=== PATIENT | female | born 1985 | race American Indian/Alaskan Native ===

== ENCOUNTER 2018-12-11 15:26 | Emergency (ER) | payer SELFPAY ==
--- NOTE | 2018-12-11 16:58 | Emergency Department Report ---
Chief Complaint: Headache Stated Complaint: BODY PAIN/WEAKNESS Time Seen by Provider: 12/11/18 16:56 - HPI History of Present Illness: headache no n/v no photophobia no trauma lmp 11/22 pmh none pcp none psh csec 4 rx none no hx migraines pos b max tenderness dramatic in triage mse completed no life threat MSE screening note: Focused history and physical exam performed. Due to findings the following was ordered: ED Disposition for MSE Condition: Stable Referrals: REMY EMERY MD [Primary Care Provider] - 3-5 Days
[2018-12-11 18:09] LABS: Bilirubin,Urine NEG (Negative); Blood,Urine NEG (Negative); Color,Urine Yellow (Yellow); Mucus,Urine 2+ /HPF; Protein,Urine <15 mg/dL mg/dL (Negative); Urobilinogen,Urine < 2.0 mg/dL (<2.0)
[2018-12-11 18:10] LABS: HCG Qualitative,Urine Negative (Negative)
[2018-12-11] MEDS ORDERED: BENADRYL PO ONE (19:49)
[2018-12-11] MEDS ORDERED: DECADRON IM ONE (19:49)
[2018-12-11] MEDS ORDERED: REGLAN PO ONE (19:49)
[2018-12-11] MEDS ORDERED: TYLENOL PO ONE (19:49)
--- NOTE | 2018-12-11 20:03 | Emergency Department Report ---
ED Headache HPI - General Chief Complaint: Headache Stated Complaint: BODY PAIN/WEAKNESS Time Seen by Provider: 12/11/18 16:56 - History of Present Illness Initial Comments: There is a 33-year-old female who presents for headache occipital radiating to frontal 3 days pain is 5/10 and aching sharp is his usual headache location usual intensity and usual duration as other migraine, patient denies fevers or chills there is no nausea vomiting patient has secondary complaint of right lesion significant lesion in 2 years seen by ophthalmology believed to be herpetic however she did not follow will prescribe acyclovir follow up with ophthalmology for lesion there is no decreased vision no blurred vision no fever no chills patient is 20/20 to baseline per patient, Timing/Duration: other (3 days ) Quality: moderate Recent Head Trauma: no recent headache/trauma Modifying Factors: improves with: movement, other ( activity ) Allergies/Adverse Reactions: Allergies Penicillins Allergy (Verified 09/10/14 01:01) Hives Home Medications: Ambulatory Orders Ibuprofen [Motrin] 600 mg PO Q8H PRN #14 tablet 09/10/14 methOCARBAMOL [Robaxin] 500 mg PO BID #10 tab 09/10/14 Acetaminophen [Tylenol Extra Strength] 1,000 mg PO QID PRN #30 tablet 12/11/18 Acyclovir [Zovirax] 400 mg PO TID #30 tablet 12/11/18 Metoclopramide [Reglan] 10 mg PO Q6H PRN #30 tablet 12/11/18 Polymyxin B Sulf/Trimethoprim [Polytrim Eye Drops] 2 drop OP Q4H 10 Days #10 ml 12/11/18 diphenhydrAMINE [Benadryl CAP] 25 mg PO Q6HR PRN #30 capsule 12/11/18 ED Review of Systems ROS: Stated complaint: BODY PAIN/WEAKNESS Other details as noted in HPI Constitutional: denies: chills, fever Eyes: other (right eye lesion ). denies: eye pain, eye discharge, vision change ENT: ear pain Respiratory: denies: cough, shortness of breath, wheezing Cardiovascular: denies: chest pain, palpitations Endocrine: no symptoms reported Gastrointestinal: denies: abdominal pain, nausea, diarrhea Genitourinary: denies: urgency, dysuria, discharge Musculoskeletal: denies: back pain, joint swelling, arthralgia Skin: denies: rash, lesions Neurological: headache. denies: weakness, numbness, paresthesias, confusion, abnormal gait, vertigo Psychiatric: denies: anxiety, depression Hematological/Lymphatic: denies: easy bleeding, easy bruising ED Past Medical Hx - Past Medical History Previous Medical History?: No - Surgical History Past Surgical History?: Yes Additional Surgical History: CS x4 - Social History Smoking Status: Never Smoker Substance Use Type: None - Medications Home Medications: Home Medications Medication Instructions Recorded Confirmed Last Taken Type Ibuprofen [Motrin] 600 mg PO Q8H PRN #14 tablet 09/10/14 Unknown Rx methOCARBAMOL [Robaxin] 500 mg PO BID #10 tab 09/10/14 Unknown Rx Acetaminophen [Tylenol Extra 1,000 mg PO QID PRN #30 tablet 12/11/18 Unknown Rx Strength] Acyclovir [Zovirax] 400 mg PO TID #30 tablet 12/11/18 Unknown Rx Metoclopramide [Reglan] 10 mg PO Q6H PRN #30 tablet 12/11/18 Unknown Rx Polymyxin B Sulf/Trimethoprim 2 drop OP Q4H 10 Days #10 ml 12/11/18 Unknown Rx [Polytrim Eye Drops] diphenhydrAMINE [Benadryl CAP] 25 mg PO Q6HR PRN #30 capsule 12/11/18 Unknown Rx ED Physical Exam - General Limitations: No Limitations General appearance: alert, in no apparent distress - Head Head exam: Present: atraumatic, normocephalic, normal inspection - Eye Eye exam: Present: PERRL, EOMI, conjunctival injection, other (lesion 8 o clock less than 1 cm erythema no drainage no pain ). Absent: periorbital swelling, periorbital tenderness Pupils: Present: normal accommodation - ENT ENT exam: Present: normal orophraynx, mucous membranes moist, normal external ear exam - Expanded ENT Exam Expanded Ear exam: Present: normal external inspection TM/Canal exam: Erythema: Left TM Mouth exam: Absent: trismus Teeth exam: Present: normal inspection Throat exam: Positive: normal inspection. Negative: tonsillar erythema, tonsillomegaly, tonsillar exudate, R peritonsillar mass, L peritonsillar mass - Neck Neck exam: Present: normal inspection, full ROM. Absent: tenderness, meningismus, lymphadenopathy, thyromegaly - Respiratory Respiratory exam: Present: normal lung sounds bilaterally. Absent: respiratory distress, wheezes, stridor, chest wall tenderness - Cardiovascular Cardiovascular Exam: Present: regular rate, normal rhythm, normal heart sounds. Absent: systolic murmur, diastolic murmur, rubs, gallop - GI/Abdominal GI/Abdominal exam: Present: soft, normal bowel sounds. Absent: tenderness, bruit, hernia - Rectal Rectal exam: Present: deferred - Extremities Exam Extremities exam: Present: normal inspection, full ROM, normal capillary refill. Absent: tenderness, joint swelling - Back Exam Back exam: Present: normal inspection, full ROM. Absent: tenderness, rash noted - Neurological Exam Neurological exam: Present: alert, oriented X3, CN II-XII intact, normal gait, motor sensory deficit, reflexes normal - Psychiatric Psychiatric exam: Present: normal affect, normal mood - Skin Skin exam: Present: warm, dry, intact, normal color. Absent: rash ED Course Vital Signs 12/11/18 16:56 Temperature 97.5 F L Pulse Rate 78 Respiratory 16 Rate Blood Pressure 119/76 O2 Sat by Pulse 100 Oximetry ED Medical Decision Making - Radiology Data Radiology results: report reviewed, image reviewed cc: MANUEL [facility] PROCEDURE: CT HEAD/BRAIN WO CON HISTORY: HEADACHE FINDINGS: Unenhanced CT of the brain was performed and demonstrates no acute intracranial hemorrhage, extra-axial fluid collection, midline shift or mass effect. The ventricles and basal cisterns are not effaced. The mastoid air cells and middle ears appear clear. There is no evidence of acute sinusitis. IMPRESSION: No acute intracranial hemorrhage This document is electronically signed by Larry Moya MD., December 11 2018 08:06:37 PM ET Transcribed By: DELORES Dictated By: LARRY MOYA MD Electronically Authenticated By: LARRY MOYA MD Signed Date/Time: 12/11/182007 - Medical Decision Making CT head normal no bleed no mass no abnormality , Headache improved plan Benadryl Tylenol Reglan when necessary headache lesion will treat with Polytrim for conjunctivitis acyclovir for lesion patient will follow up with ophthalmology in 2 days there is no visual changes no decreased vision visual acuity is 20/20 there is no pain no drainage from lesion patient will follow with PCP [facility] patient verbalized agreement and understanding with same patient will DC home in stable condition at this time Critical care attestation.: If time is entered above; I have spent that time in minutes in the direct care of this critically ill patient, excluding procedure time. ED Disposition Clinical Impression: Headache Qualifiers: Headache type: unspecified Headache chronicity pattern: acute headache Intractability: not intractable Qualified Code(s): R51 - Headache Conjunctivitis Qualifiers: Conjunctivitis type: acute Acute conjunctivitis type: unspecified Laterality: right Qualified Code(s): H10.31 - Unspecified acute conjunctivitis, right eye Disposition: DC-01 TO HOME OR SELFCARE Is pt being admited?: No Does the pt Need Aspirin: No Condition: Stable Instructions: Acute Headache (ED), Conjunctivitis (ED), Cysteamine (Into the eye) Prescriptions: diphenhydrAMINE [Benadryl CAP] 25 mg PO Q6HR PRN #30 capsule PRN Reason: Headache Polymyxin B Sulf/Trimethoprim [Polytrim Eye Drops] 2 drop OP Q4H 10 Days #10 ml Metoclopramide [Reglan] 10 mg PO Q6H PRN #30 tablet PRN Reason: Headache Acetaminophen [Tylenol Extra Strength] 1,000 mg PO QID PRN #30 tablet PRN Reason: pain Acyclovir [Zovirax] 400 mg PO TID #30 tablet Referrals: REMY EMERY MD [Primary Care Provider] - 3-5 Days NEHAL IRELAND MD [Staff Physician] - 3-5 Days [facility] [Outside] - 3-5 Days Forms: Work/School Release Form(ED) Time of Disposition: 20:22
--- NOTE | 2018-12-11 20:08 | Cat Scan Report ---
PROCEDURE: CT HEAD/BRAIN WO CON HISTORY: HEADACHE FINDINGS: Unenhanced CT of the brain was performed and demonstrates no acute intracranial hemorrhage, extra-axial fluid collection, midline shift or mass effect. The ventricles and basal cisterns are no t effaced. The mastoid air cells and middle ears appear clear. There is no evidence of acute sinusitis. IMPRESSION: No acute intracranial hemorrhage This document is electronically signed by Larry oMya MD., December 11 2018 08:06:37 PM ET
[2018-12-11 20:50] VITALS: BP 122/74
== END 2018-12-11 20:50 | disposition home or self-care (01) ==
LOC: ED 15:26
DX: H10.31 Unspecified acute conjunctivitis, right eye (principal); R51 Headache
CPT/HCPCS: 70450; 81001; 81025; 96372; 99284; J1100

== ENCOUNTER 2019-01-10 20:40 | Emergency (ER) | payer SELFPAY ==
[2019-01-10 20:57] VITALS: BP 123/75
--- NOTE | 2019-01-10 22:01 | Emergency Department Report ---
Eye Injury/Foreign Body - HPI Duration: 3 Days Eye Location: Right Severity: Moderate Eye Symptoms: Eye Pain: No, Blurred Vision: No, Eye Redness: No, Grinding/Hammering Metal: No, Contact Lens Use: No, Photophobia: No Other History: 33 y/o female c/o right top lid lesion with pain. Denies any fever or discharge no blurry vision. ED Review of Systems ROS: Stated complaint: RIGHT EYE PAIN Other details as noted in HPI Comment: All other systems reviewed and negative ED Past Medical Hx - Past Medical History Previous Medical History?: No - Surgical History Past Surgical History?: Yes Additional Surgical History: CS x4 - Social History Smoking Status: Never Smoker Substance Use Type: None - Medications Home Medications: Home Medications Medication Instructions Recorded Confirmed Last Taken Type Ibuprofen [Motrin] 600 mg PO Q8H PRN #14 tablet 09/10/14 Unknown Rx methOCARBAMOL [Robaxin] 500 mg PO BID #10 tab 09/10/14 Unknown Rx Acetaminophen [Tylenol Extra 1,000 mg PO QID PRN #30 tablet 12/11/18 Unknown Rx Strength] Acyclovir [Zovirax] 400 mg PO TID #30 tablet 12/11/18 Unknown Rx Metoclopramide [Reglan] 10 mg PO Q6H PRN #30 tablet 12/11/18 Unknown Rx Polymyxin B Sulf/Trimethoprim 2 drop OP Q4H 10 Days #10 ml 12/11/18 Unknown Rx [Polytrim Eye Drops] diphenhydrAMINE [Benadryl CAP] 25 mg PO Q6HR PRN #30 capsule 12/11/18 Unknown Rx Eye Injury Exam - Exam General: Vital signs noted. No distress. Alert and acting appropriately. right top eye lid near the inner nasal bridge. flesh tone with erythema base. TTP. No eye discharge noted. ED Course Vital Signs 01/10/19 01/10/19 20:55 21:54 Temperature 98.5 F 98.5 F Pulse Rate 88 87 Respiratory 18 18 Rate Blood Pressure 123/75 123/75 O2 Sat by Pulse 99 99 Oximetry ED Medical Decision Making - Medical Decision Making Patient was seen today in Triage today by this provider. 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 ED Disposition Clinical Impression: Eye lesion Disposition: DC-01 TO HOME OR SELFCARE Is pt being admited?: No Does the pt Need Aspirin: No Condition: Stable Additional Instructions: Please follow up with a eye provider. Referrals: NEHAL IRELAND MD [Staff Physician] - 3-5 Days [facility] [Provider Group] - 3-5 Days [facility] [Provider Group] - 3-5 Days Forms: Work/School Release Form(ED)
== END 2019-01-10 22:10 | disposition home or self-care (01) ==
LOC: ED 20:40
DX: H57.9 Unspecified disorder of eye and adnexa (principal); H57.11 Ocular pain, right eye
CPT/HCPCS: 99282